=== PATIENT | female | born 1995 | race Caucasian/White ===

== ENCOUNTER 2018-01-16 20:15 | Emergency (ER) | payer OTHER, SELFPAY ==
[2018-01-16 20:19] VITALS: BP 150/100; PULSE 94; RESP 17; TEMP 36.7; O2SAT 98
--- NOTE | 2018-01-16 20:51 | ED.GENADUL_ITS ---
Discharge Plan Disposition Patient Disposition: HOME Condition: Fair Discharge Details Chief Complaint: Cellulitis Clinical Impression: Cellulitis and abscess of other specified site Primary Care Provider: JOSE FRANCISCO BREWER III ED Provider: Rita Pinedo Home Meds and New Rx's Prescriptions: New sulfamethoxazole-trimethoprim [Bactrim DS] 800-160 mg tablet 1 tab PO Q12H Qty: 14 RF: 0 Continue levonorgestrel [Mirena] 1 EACH intrauterine device 1 ea Intrauterine DIRECTED RF: 0 hydroxyzine HCl 50 MG tablet 50 mg PO PRN RF: 0 sertraline 100 MG tablet 100 mg PO DAILY RF: 0 Discharge Instructions Instructions: Abscess (ED) Additional Instructions: Encourage hydration. Tylenol and/or ibuprofen as needed for discomfort. Please take antibiotics as prescribed. Please take complete course of antibiotics even if symptoms improve. If you develop fever/chills, increased pain, spreading of the redness or the new/worsening symptoms please seek care urgently once again. Antibiotics can cause photosensitivity, nausea/vomiting. Please take a probiotic while on antibiotic. Please follow-up with primary care next week for reevaluation. May have increased side effects if this is taken with alcohol. Referrals: JOSE FRANCISCO BREWER III [Primary Care Provider] - Discharge Data Discharge Date/Time-TO BE ENTERED AT DEPARTURE: 01/16/18 21:05 Medical Decision Making MDM Narrative Medical decision making narrative: Patient presents [facility] chief complaint of area of pain and drainage over the central low pannus. Patient did open the area to allow this to drain. Has had other areas such as this in her axilla historically whch have responded well to drainage. On exam, she has a 5mm area of opening that appears to have been draining. I am unable to express any drainage at this time. The surrounding tissue is erythematous and indurated. This was marked. I did explore the area with an ultrasound and am unable to find a collection of fluid to suggest that an abscess remains. However, it does appear that the patient had an abscess and was successful at draining this at home. Surrounding tissue appears cellulitic. She will be placed on antibiotics. Encouraged hydration. Discussed new/worsneing symptoms and when to seek care urgently once again. ADvised f/u with PCP to ensure this is improving. She will keep bandage over the open area during the day as this area does fold over and rub against her clothing. All of her questions and concerns were addressed, she is in agreement with this plan. HPI - General Adult General Mode of arrival: ambulatory . Date/Time Provider Initiated Documentation: 01/16/18 20:33 . Limitations to Documentation: no limitations . Information obtained by: patient and family . HPI Narrative: Patient is a 22-year-old female presenting today with chief complaint of lesion to the central pannus. She reports that lesion was first noticed about 2 weeks ago. For the past week she has noted some drainage. She does report that she tried to open this itself of the weekend. States she has been covered with a Band-Aid and continues to notice discoloration like discharge on the body when she changes alone. She denies any fevers or chills. Today, the patient noted surrounding erythema that began to spread. States she is having pain, particularly with ambulation when he is able to rub on the zipper of her jeans. Has not had similar episodes. Patient has IUD reports she is not sexually active Related Data Home Medications Medication Instructions Recorded Confirmed levonorgestrel [Mirena] 1 ea INTRAUTERINE DIRECTED 04/23/13 01/16/18 hydroxyzine HCl 50 mg PO PRN 04/21/15 01/16/18 sertraline 100 mg PO DAILY 03/07/17 01/16/18 Previous Rx's Medication Instructions Recorded sulfamethoxazole-trimethoprim 1 tab PO Q12H #14 tab 01/16/18 [Bactrim DS] Allergies Allergy/AdvReac Type Severity Reaction Status Date / Time No Known Drug Allergies Allergy Unknown None Unverified 03/07/17 16:32 General Stated Complaint: Cellulitis MARIMAR: 4 Review of Systems Constitutional Reports as per HPI, Denies chills and Denies fever(s) Cardiovascular Denies chest pain and Denies lightheadedness Respiratory Reports system reviewed and no additional complaints, except as docu Gastrointestinal Reports as per HPI, Reports abdominal pain (abdominal wall discomfort over area of erythema, low central pannus. No deeper abdominal pain. ), Denies change in bowel habits, Denies constipation, Denies diarrhea, Denies nausea and Denies vomiting Genitourinary Reports as per HPI Integumentary/Breasts Reports as per HPI PFSH Family History Other Heart disease Medical History Anxiety Childhood asthma Depression Social History Smoking/Tobacco Use Status: Never Surgical History Appendectomy Tonsillectomy Exam Const General: cooperative, healthy appearing, comfortable, no acute distress and well developed Nutritional Appearance: obese Orientation: alert and awake Resp Effort & Inspection: normal respiratory effort, able to speak in complete sentences and no respiratory distress Auscultation: clear to auscultation bilaterally Cardio Rate: regular rate Rhythm: regular rhythm Heart Sounds: S1 normal and S2 normal GI Inspection: abnormal to inspection (patient has a 5mm white area that appears to be an open wound from which drainage was coming, some is noted dry around the area. Surroudning tissue is erythematous and indurated. No palpable area of fluctuance), no abdominal wall ecchymosis, no edema, non-distended, large pannus and obesity Palpation: soft, no hepatosplenomegaly, no guarding, not rigid and nontender Auscultation: normal bowel sounds Skin General skin exam: rashes and/or lesions noted (as above) Neuro General: alert and awake Cognition: normal cognition Speech: speech normal Gait: normal gait Psych Appearance: grossly normal and well kempt Mental Status: mental status grossly normal Speech and Movement: speech and movement normal Course Vital Signs Temperature 36.7 C 01/16/18 20:19 Pulse 94 H 01/16/18 20:19 Respiratory Rate 17 01/16/18 20:19 Blood Pressure 150/100 H 01/16/18 20:19 Pulse Oximetry 98 01/16/18 20:19 Temperature 36.7 C 01/16/18 20:19 Pulse 94 H 01/16/18 20:19 Respiratory Rate 17 01/16/18 20:19 Blood Pressure 150/100 H 01/16/18 20:19 Pulse Oximetry 98 01/16/18 20:19
[2018-01-16] MEDS: Sulfameth/Trimeth DS TAB 1 TAB PO ×2 (20:59)
== END 2018-01-16 21:05 | disposition home or self-care (01) ==
PROVIDERS: Emergency Provider Physician Assistant; PCP Pediatrics
DX: L03.311 Cellulitis of abdominal wall (principal)
CPT/HCPCS: 99283

== ENCOUNTER 2018-02-24 11:39 | Emergency (ER) | payer OTHER, SELFPAY ==
[2018-02-24 11:43] VITALS: BP 151/105; PULSE 92; RESP 16; TEMP 36.6; O2SAT 98
--- NOTE | 2018-02-24 12:16 | ED.GENADUL_ITS ---
Discharge Plan Disposition Patient Disposition: HOME Condition: Stable Discharge Details Chief Complaint: RashLesion Clinical Impression: Abscess of right axilla Primary Care Provider: JOSE FRANCISCO BREWER III ED Provider: Piotr Costello Home Meds and New Rx's Prescriptions: New sulfamethoxazole-trimethoprim [Bactrim DS] 800-160 mg tablet 1 tab PO BID Qty: 10 RF: 0 Continue levonorgestrel [Mirena] 1 EACH intrauterine device 1 ea Intrauterine DIRECTED RF: 0 hydroxyzine HCl 50 MG tablet 50 mg PO PRN RF: 0 sertraline 100 MG tablet 100 mg PO DAILY RF: 0 Discharge Instructions Instructions: Abscess (ED) Discharge Data Discharge Physician: Piotr Costello Medical Decision Making Pt has had swelling of the right arm pit and has had this problem in the past. Has an abscess of the right arm pit. NO fevers and appears well systemically, consents verbally to drainage. Will also refer to general surgery as this has been a problem in the past Differential Diagnosis sebaceous cyst, abscess, hidranitis HPI General Mode of arrival: ambulatory . Date/Time Provider Initiated Documentation: 02/24/18 12:04 . Limitations to Documentation: no limitations . Information obtained by: patient . History of Present Illness 22 year old F presents to the emergency department with the chief complaint of right armpit swelling, described as moderate, with intensity rated at 3. Quality is described as aching, Patient reports no radiation. Patient started experiencing this day(s) (3) and it has been constant. No relieving factors improve symptom(s), No exacerbating factors reported . Patient notes no other symptoms.. Patient did receive the following treatments prior to arrival, none Related Data Home Medications Medication Instructions Recorded Confirmed levonorgestrel [Mirena] 1 ea INTRAUTERINE DIRECTED 04/23/13 02/24/18 hydroxyzine HCl 50 mg PO PRN 04/21/15 02/24/18 sertraline 100 mg PO DAILY 03/07/17 02/24/18 sulfamethoxazole-trimethoprim 1 tab PO BID #10 tab 02/24/18 [Bactrim DS] Previous Rx's Medication Instructions Recorded sulfamethoxazole-trimethoprim 1 tab PO BID #10 tab 02/24/18 [Bactrim DS] Allergies Allergy/AdvReac Type Severity Reaction Status Date / Time No Known Drug Allergies Allergy Unknown None Unverified 02/24/18 11:47 General Stated Complaint: RashLesion MARIMAR: 3 Review of Systems Review of Systems All systems reviewed & are unremarkable except as noted in HPI and below Constitutional Denies chills and Denies fever(s) Eyes Denies eye discharge ENT Denies nasal congestion Cardiovascular Denies dyspnea Respiratory Denies dyspnea Gastrointestinal Denies vomiting Musculoskeletal Denies joint swelling Hematologic/Lymphatic Denies easy bleeding PFSH Family History Other Heart disease Medical History Anxiety Childhood asthma Depression Social History Smoking/Tobacco Use Status: Never Surgical History Appendectomy Tonsillectomy Course Vital Signs Temperature 36.6 C 02/24/18 11:43 Pulse 92 H 02/24/18 11:43 Respiratory Rate 16 02/24/18 11:43 Blood Pressure 151/105 H 02/24/18 11:43 Pulse Oximetry 98 02/24/18 11:43 Temperature 36.6 C 02/24/18 11:43 Temperature Source Temporal Artery Scan 02/24/18 11:43 Pulse 92 H 02/24/18 11:43 Respiratory Rate 16 02/24/18 11:43 Respiratory Effort Non-Labored 02/24/18 11:45 Blood Pressure 151/105 H 02/24/18 11:43 Pulse Oximetry 98 02/24/18 11:43 Oxygen Delivery Method Room Air 02/24/18 11:43 Oxygen Flow Rate 0 02/24/18 11:43 Pain Level 6 02/24/18 11:43 Procedures Abscess I/D Site: Other (armpit) Side (if applicable): Right Sedation/analgesia: None Local Anesthetic: Lidocaine 1% Amount of anesthesia used (mL): 5 Technique: Incised with #11 Blade Amount of fluid expressed (mL): 20 Irrigation: Yes Packing used?: None Complications: Pain
[2018-02-24] MEDS: Ibuprofen 600 MG TAB (12:32)
== END 2018-02-24 12:35 | disposition home or self-care (01) ==
PROVIDERS: Emergency Provider Emergency Medicine; PCP Pediatrics
DX: L02.411 Cutaneous abscess of right axilla (principal)
CPT/HCPCS: 10060

== ENCOUNTER 2018-05-16 15:53 | Outpatient (REF) | payer OTHER, SELFPAY ==
--- NOTE | 2018-05-16 14:10 | PAPFT_PTH ---
PATIENT: Megan Quintero LOC: [facility]#:[id number] AGE/SX: 22/F ROOM: RE05/16/[address]: Svitlana Velazquez : 1995 BED: DIS: 05/16/2018 SPEC #: [id number] RECD: 05/17/18 12:59 STATUS: GAVINShelby REKisha #: [id number] LYNNETTE: 05/16/18 14:[address]: Svitlana Velazquez DEPT: [facility] Cytology RECD BY: Courtney Maynard ENTERED: 05/17/18 13:00 SP TYPE: PAPFT HEMA DR: Fermín Angel III Tissues: 1 - CX/ENDOCX FOR PAP SMEARS Procedures: PAP THIN PREP/UVM Screening HPV DNA PROBE Comments: [id number] (CHLAMYDIA/GC)
[2018-05-20 13:13] LABS: Chlamydia Result Negative; GC Result Negative; Specimen Description SEE COMMENTS
== END 2018-05-16 16:13 ==
LOC: NCHCN 15:53
PROVIDERS: PCP Pediatrics; Visit Provider Nurse Practitioner Family
DX: Z00.00 Encounter for general adult medical examination without abnormal findings (principal); Z12.4 Encounter for screening for malignant neoplasm of cervix; Z01.419 Encounter for gynecological examination (general) (routine) without abnormal findings; Z11.51 Encounter for screening for human papillomavirus (HPV)
CPT/HCPCS: 87491; 87591; 88142; 87624

== ENCOUNTER 2022-07-31 16:47 | Outpatient (CLI) | payer OTHER, SELFPAY ==
--- NOTE | 2022-07-31 16:30 | DI.RAD_ITS ---
Exam(s) XR ANKLE RT COMPLETE EXAM: XR ANKLE RT COMPLETE CLINICAL HISTORY: evaluate fx M25.571 PAIN RT ANKLE. TECHNIQUE: 2D digital imaging was performed. COMPARISON: No exams were available for comparison FINDINGS: 3 views No evidence of acute fracture or widening of the ankle mortise. Talar dome unremarkable. Small bony excrescence off the inferior tip of the lateral malleolus is pro bably developmental. Small osteophytic density seen in the medial aspect of the ankle joint question able significance but possibly just accessory ossicle. Os trigonum noted No osseous tarsal coalition evident. IMPRESSION: As above. No fracture evident. DATA REPOSITORY: RADIATION DOSE DELIVERED:
--- NOTE | 2022-07-31 17:21 | DI.VRAD_ITS ---
PROCEDURE INFORMATION: Exam: XR Right Ankle Exam date and time: 07/31/2022 5:04 PM Age: 26 years old Clinical indication: Pain right ankle, eval FX TECHNIQUE: Imaging protocol: Radiologic exam of the right ankle. Views: 3 or more views. COMPARISON: No relevant prior studies available. FINDINGS: Bones/joints: No acute fracture or dislocation. The alignment is anatomic. There is a small os trigonum noted. Small osteophyte noted at the tip of the distal fibula, possibly due to remote injury. Soft tissues: No large soft tissue finding. IMPRESSION: 1. No acute fracture or dislocation. 2. Small osteophyte at the lateral malleolus, possibly from remote injury. 3. Small os trigonum noted. Correlate for any associated clinical symptoms. Dictated and Authenticated by: Massiel Buck MD. Ordering:GEMA Zambrano MD
== END 2022-07-31 17:07 ==
LOC: DI 16:48
PROVIDERS: PCP Pediatrics; Visit Provider Nurse Practitioner Family
DX: M25.571 Pain in right ankle and joints of right foot (principal); M25.771 Osteophyte, right ankle
CPT/HCPCS: 73610

== ENCOUNTER 2022-09-15 16:04 | Outpatient (REF) | payer OTHER, SELFPAY ==
[2022-09-15 14:25] LABS: HCT 43.8 % (36.0-46.0); HGB 14.5 g/dL (11.2-15.7); MCH 28.9 pg (27.0-33.0); MCHC 33.1 % (32.0-36.0); MCV 87 fL (80-95); MPV 11.3 fL (8.0-11.0); Platelet Count 269 10^3/uL (130-400); RBC 5.01 10^6/uL (3.93-5.22); RDW 12.6 % (11.7-14.6); RDW-SD 40.4 fL; WBC 4.88 10^3/uL (4.4-10.8)
[2022-09-15 14:38] LABS: ALT 50 U/L (14-59); AST 25 U/L (15-37); Albumin 4.2 g/dL (3.4-5.0); Alkaline Phosphatase 48 U/L (46-116); Anion Gap 7.7 mmol/L (3-11); BUN 9 mg/dL (7-18); Bilirubin, Total 0.9 mg/dL (0.2-1.0); CO2 28.3 mmol/L (21.0-32.0); CREATININE 0.8 mg/dL (0.55-1.02); Calcium 9.3 mg/dL (8.5-10.1); Chloride 104 mmol/L (98-107); Estimated GFR 102.22 (mL/min/1.73m2); Glucose 99 mg/dL (74-106); Potassium 4.2 mmol/L (3.5-5.1); Sodium 140 mmol/L (136-145); Total Protein 7.5 g/dL (6.4-8.2)
== END 2022-09-15 16:05 | disposition home or self-care (01) ==
LOC: NCHCN 16:04
PROVIDERS: PCP Pediatrics; Visit Provider Nurse Practitioner Family
DX: F41.8 Other specified anxiety disorders (principal); E66.9 Obesity, unspecified
CPT/HCPCS: 80053; 85027

== ENCOUNTER 2022-12-13 15:49 | Outpatient (REF) | payer OTHER, SELFPAY ==
--- NOTE | 2022-12-13 14:40 | PAPFT_PTH ---
PATIENT: Megan Quintero LOC: [facility]#:[id number] AGE/SX: 27/F ROOM: RE12/13/[address]: Karina Srinivasan : 1995 BED: DIS: 12/13/2022 SPEC #: [id number] RECD: 12/14/22 14:46 STATUS: RIC REKisha #: [id number] LYNNETTE: 12/13/22 14:[address]: Karina Srinivasan DEPT: [facility] Cytology RECD BY: Nuha Vergara ENTERED: 12/14/22 14:47 SP TYPE: PAPFT OTHR DR: Fermín Angel III Tissues: 1 - CX/ENDOCX FOR PAP SMEARS Procedures: PAP THIN PREP/UVM Screening Comments: [id number] (CHLAMYDIA/GC)
--- OUTSIDE RECORDS SUMMARY | 2022-12-13 15:52 | XMS_ITS | Continuity of Care Document ---
Author Name Unknown Organization [facility] Address [address] [place] [id number] [id number] Date(s): 07/07/22 - 07/07/[address] [id number]- Discharge Disposition: Home or Self Care Attending Physician: Bernarda Barrow Admitting Physician: Bernarda Barrow
[2022-12-15 13:10] LABS: Chlamydia Result Negative (Negative); GC Result Negative (Negative)
== END 2022-12-13 15:50 | disposition home or self-care (01) ==
LOC: NCHCN 15:49
PROVIDERS: PCP Pediatrics; Visit Provider Nurse Practitioner Family
DX: Z12.4 Encounter for screening for malignant neoplasm of cervix; Z01.419 Encounter for gynecological examination (general) (routine) without abnormal findings
CPT/HCPCS: 87491; 87591; 88142

== ENCOUNTER 2025-05-05 11:33 | Day surgery (SDC) | payer OTHER, SELFPAY ==
[2025-05-05] VITALS (26 sets, daily range): BP systolic 135–169; BP diastolic 62–111; PULSE 56–93; RESP 13–24; TEMP 36.2–37; O2SAT 96–100; BMI 42.5
[2025-05-05 12:24] LABS: Abs Immature Grans 0.02 10^3/uL (0.0-0.06); HCT 41.6 % (36.0-46.0); HGB 13.4 g/dL (11.2-15.7); Immature Grans % 0.3 %; MCH 27.7 pg (27.0-33.0); MCHC 32.2 % (32.0-36.0); MCV 86 fL (80-95); MPV 10.6 fL (8.0-11.0); Platelet Count 279 10^3/uL (130-400); RBC 4.84 10^6/uL (3.93-5.22); RDW 12.3 % (11.7-14.6); RDW-SD 38.7 fL; WBC 6.93 10^3/uL (4.4-10.8)
[2025-05-05] MEDS: DOXYCYCLINE 100 MG in Normal Saline 100 ML IVPB (12:35)
[2025-05-05] MEDS: Lactated Ringers 1,000 ML 125 ML IV (12:36)
--- NOTE | 2025-05-05 13:06 | ANES.PREOP_ITS ---
General Info Date of Service Date Performed: 05/05/25 Height: 5 ft 9 in Weight: 130.7 kg Body Mass Index (BMI): 42.5 Surgical Procedure: Operation Date: 05/05/25 13:25 Proposed Procedure Side Surgeon p Suction Completion, D&C Ericka Burton DO Meds Allergies and Home Medications Allergies Allergy/AdvReac Type Severity Reaction Status Date / Time Penicillins Allergy Other (See Verified 05/05/25 12:08 Comment) Home Medication ?Medication ?Instructions ?Recorded bupropion HCl 300 mg 24 hr tablet, 300 mg PO QAM 03/24 extended release (Wellbutrin XL) omeprazole 20 mg capsule,delayed 20 mg PO .every other day 03/24/25 release buspirone 5 mg tablet 15 mg PO BID 05/04/25 Current Visit Medications: Current Medications Generic Name Dose Route Start Last Admin Trade Name Freq PRN Reason Stop Dose Admin Ringer's Solution 1,000 mls @ 125 mls/hr 05/05/25 06:00 05/05/25 12:36 IV 05/05/25 23:59 125 mls/hr INFUSION CAPO Administration Doxycycline Hyclate 100 mg/ 100 mls @ 100 mls/hr 05/05/25 10:00 05/05/25 12:35 Sodium Chloride IVPB 05/05/25 23:59 100 mls/hr ONCE CAPO Administration Sodium Chloride 0 ml 05/05/25 06:00 Normal Saline Flush 10 Ml Syr IV 05/05/25 23:59 PRN PRN Sodium Chloride 0 ml 05/05/25 06:00 Normal Saline 10 Ml Vial IJ 05/05/25 23:59 DIRECTED PRN Sterile Water 0 ml 05/05/25 06:00 Water,Injection,Sterile 10 Ml Vial IJ 05/05/25 23:59 DIRECTED PRN PFSH Active Problems Active Problems: Problem Status Onset Code Missed Acute O02.1 Obesity, Class III, BMI 40-49.9 (morbid obesity) Acute E66.813 Vaginal spotting Acute N93.9 Depression Chronic 04/14/13 F32.A Anxiety disorder Acute 04/14/13 F41.9 Acute Z34.90 Medical History Medical History (Updated 05/04/25 @ 16:56 by Beverley Zhang) Pap smear of cervix with ASCUS, cannot exclude HGSIL (04/21/15) 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 Prental History History 2 1 Para 0 Hx # Term Pregnancies 0 Multiple births 0 Hx # Pregnancies 0 Ectopic pregnancies 0 AB induced 0 Hx Number of Living Children 0 AB spontaneous 0 Vital Signs and Lab Results Vital Signs Most Recent Vital Signs in EMR: Most Recent Vital Signs Temp Pulse Resp BP Pulse Ox 37 C 84 20 142/99 H 100 05/05/25 12:14 05/05/25 12:14 05/05/25 12:14 05/05/25 12:14 05/05/25 12:14 Lab Results 05/05/25 12:10 Blood Type / Crossmatch: 2 Antibody Screen Pending Today Complete Blood Count: 2 WBC, (4.4-10.8) 6.93 10^3/uL Today, 12:10 RBC, (3.93-5.22) 4.84 10^6/uL Today, 12:10 Hgb, (11.2-15.7) 13.4 g/dL Today, 12:10 Hct, (36.0-46.0) 41.6 % Today, 12:10 Plt Count, (130-400) 279 10^3/uL Today, 12:10 Anesthesia Assessment and Plan Anesthesia History Personal History: Delayed Emergence Family History: No Family History of Anesthesia Complications Exercise Tolerance Exercise Tolerance: Metabolic Equivalents>4 Pertinent Negatives Pertinent Negatives: No Symptoms of GERD, No Major Cardiovascular Symptoms or Complaints and No Major Pulmonary Symptoms or Complaints Cardiac & Pulmonary Exam Cardiac Exam: Normal S1/S2 Heart Sounds Pulmonary Exam: Clear Bilateral Breath Sounds Implantable Cardiac Device Does patient have a Pacemaker or an ICD?: No Airway Exam Known Difficult Airway: No Mallampati Class: 2 Mouth Opening: Normal (> 3cm) Thyromental Distance: Greater than 3 cm Neck Range of Motion: Full ROM Neck Circumference: Normal Teeth Condition: Normal Dentition Airway Comments: History of clicking jaw, 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 Patient reports frequent popping. ASA Classification ASA Score: ASA 3 Emergency Case?: No NPO Status NPO Status: NPO Clears >2 hours, Solids >8 hours Status Status: Positive HCG Anesthesia Plan Resuscitation Status: Full Code Anesthesia Technique: General Anesthesia Airway Planned: LMA Monitors Used: Standard Monitors and SedLine
--- NOTE | 2025-05-05 14:03 | POCSPONT_PTH ---
PATIENT: Megan Quintero LOC: [facility]#:[id number] AGE/SX: 29/F ROOM: RE05/05/[address]: Ericka Burton DO : 1995 BED: DIS: 05/05/2025 SPEC #: [id number] RECD: 05/05/25 18:45 STATUS: RIC REQ #: [id number] LYNNETTE: 05/05/25 14:[address]: Ericka Burton DEPT: Surgical Specimen RECD BY: Courtney Maynard ENTERED: 05/05/25 18:46 SP TYPE: POCSPONT HEMA DR: Karina Srinivasan Tissues: 1 - ,SPONTANEOUS Procedures: GROSS AND MICRO LEVEL 4 Comments: [id number]
--- NOTE | 2025-05-05 14:15 | ROE_ITS ---
Operative Note Operative Note PRE-OP DIAGNOSIS: Missed , embryonic demise POST-OP DIAGNOSIS: same PROCEDURE: Dilation curettage and suction SURGEON: Ericka Burton ANESTHESIA TYPE: General LMA/ETT Refer to Anesthesia Record ESTIMATED BLOOD LOSS: 100 PATHOLOGY: other (Products of conception) COMPLICATIONS: None Patient was transported to: same day Patient's condition: stable Indications: Intrauterine demise Findings: Moderate products of conception Procedure Description: Patient is a 29-year-old female with known embryonic demise. This benefits alternatives of dilation and curettage of suction were explained to the patient in full informed consent was obtained. She was to the operating suite with an IV running. She received 100 mg of doxycycline prior to the procedure. She had pneumatic compression stockings for DVT prophylaxis. She was placed in the modified dorsolithotomy position in [facility] after anesthesia was administered. She was prepped and draped in usual sterile fashion. A timeout was held. Exam under anesthesia revealed a uterus that was midline and mobile, approximately 8 weeks size. Speculum was inserted into the vaginal vault and the cervix grasped with an Allis clamp. The cervical os was dilated to the point that a 7 Mal[place]ian curved suction curette could be passed without difficulty. With a gentle suction, the entire endometrial cavity was evacuated. A gentle sharp curettage was performed with a banjo curette until the coarse cry of the uterus could be felt in all 4 quadrants. A second pass of the suction curette was undertaken. At this point, with the uterus empty of tissue and, small, and involuted, procedure was terminated. the Allis clamp was removed from the cervix. Speculum was removed, and the patient returned to the dorsal supine position. She tolerated the procedure without difficulty and was taken to the recovery room in stable condition. Complications: None apparent Fluids: Crystalloid per anesthesia Findings: Moderate products of conception Pathology: Uterine contents EBL: 100 mL. Date of Procedure: 05/05/25
--- NOTE | 2025-05-05 14:27 | W.ANESPOSTOP ---
Postoperative Evaluation Date, Time and Location Date Performed: 05/05/25 Time Performed: 14:27 Patient Location: PACU Vital Signs Most Recent Imported Vital Signs: Most Recent Vital Signs Temp Pulse Resp BP Pulse Ox 37 C 63 21 168/81 H 98 05/05/25 12:14 05/05/25 14:25 05/05/25 14:25 05/05/25 14:21 05/05/25 14:25 Pain Score Most Recent Pain Score: Most Recent Pain Score Pain Level 0 05/05/25 12:14 Assessment Mental Status: Awake (Alert & Oriented to Patient Baseline) Airway and Respiratory Function: Patent airway with normal (patient baseline) respiratory exam Cardiovascular Function: Hemodynamically Stable Hydration Status: Adequately Hydrated Nausea & Vomiting: No Nausea or Vomiting Pain: Pain is tolerable per patient Peripheral Nerve Block: Patient did not receive a nerve block
[2025-05-05] MEDS: fentaNYL 100 MCG/2 ML VIAL IVP ×2 (14:34→14:44)
== END 2025-05-05 16:04 | disposition home or self-care (01) ==
PROVIDERS: PCP Nurse Practitioner Family; Visit Provider Obstetrics & Gynecology
PROC: (CPT 59841; principal; 2025-05-05 13:15)
DX: O02.1 Missed abortion (principal); Z3A.01 Less than 8 weeks gestation of pregnancy; E66.813 Obesity, class 3; F41.9 Anxiety disorder, unspecified; F32.A Depression, unspecified; Z68.41 Body mass index [BMI] 40.0-44.9, adult
CPT/HCPCS: 59820; 86850; 86900; 86901; 88305; 85025; J1100; J1885; J2003; J2250; J2405; J2704; J3010